=== PATIENT | male | born 1975 | race Caucasian/White ===

== ENCOUNTER 2016-12-10 02:00 | Emergency (ER) | payer OTHER ==
[2016-12-10] MEDS ORDERED: RX INFO: IV CONTRAST WAS GIVEN 1 EACH MISC MISCELLANE PRN (02:05)
[2016-12-10] MEDS ORDERED: HYDROmorphone 1 MG/ML 1 ML SYRINGE IVP STA ×2 (02:05→02:18)
[2016-12-10] MEDS ORDERED: SODIUM CHLORIDE 0.9% 1,000 ML IV STA (02:05)
[2016-12-10 02:06] VITALS: BP 139/100; PULSE 66; TEMP 97.9
[2016-12-10 02:24] VITALS: RESP 22
[2016-12-10 02:24] LABS: CH 33.5; CHCM 34.2; HCT 43.6 % (39.0-53.0); HDW 2.46; HGB 14.6 gm/dL (13.0-17.5); MCH 32.8 pg (25.0-35.0); MCHC 33.4 g/dL (31.0-37.0); MCV 98.3 fL (80.0-100.0); Mean Platelet Volume 8.2; RBC 4.44 m/uL (4.30-5.90); RDW 12.9 % (11.5-15.5); WBC 13.7 k/uL (3.8-10.6); WBC (Perox) 14.11
[2016-12-10 02:27] LABS: ALT 37 U/L (21-72); AST 40 U/L (17-59); Alkaline Phosphatase 61 U/L (38-126); Amylase 51 U/L (30-110); Anion Gap 16 mmol/L; Blood Urea Nitrogen 10 mg/dL (9-20); Calcium 9.5 mg/dL (8.4-10.2); Carbon Dioxide 23 mmol/L (22-30); Chloride 105 mmol/L (98-107); Glucose 120 mg/dL (74-99); Non-African American GFR(MDRD) >60 (>60 ml/min/1.73 sqM); Potassium 3.1 mmol/L (3.5-5.1); Sodium 144 mmol/L (137-145); Total Bilirubin 0.5 mg/dL (0.2-1.3)
[2016-12-10 02:28] LABS: INR 1.2 (<1.2); Partial Thromboplastin Time 25.8 sec (22.0-30.0); Prothrombin Time 11.6 sec (9.0-12.0)
[2016-12-10 02:29] LABS: Alcohol 114 mg/dL
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
[2016-12-10 02:33] LABS: Glucose,Whole Blood 142 mg/dL (75-99)
[2016-12-10] MEDS ORDERED: ceFAZolin 2 GM in SODIUM CHLORIDE 0.9% 100 ML IVPB STA (02:34)
[2016-12-10 02:37] LABS: Creatine Kinase 383 U/L (55-170)
[2016-12-10 02:45] LABS: Add Differential Manual Differential
[2016-12-10 02:47] LABS: Manual Review Performed; Nucleated Red Blood Cells 0 /100 WBC (0-0); Total Cells Counted 100
[2016-12-10 02:50] LABS: Troponin I <0.012 ng/mL (0.000-0.034)
[2016-12-10 02:51] LABS: Creatine Kinase MB 3.9 ng/mL (0.0-2.4)
--- NOTE | 2016-12-10 03:15 | CT ---
CT HEAD WITHOUT CONTRAST INDICATION: Trauma TECHNIQUE: CT acquisition is performed through the brain. Sagittal and coronal reformatted images are provided. No IV contrast is administered. DOSE INFORMATION: CTDIvol 57.40 mGy; DLP 1064.30 mGy-cm. One or more of the following dose reduction techniques were used: automated exposure control, adjustment of the mA and/or kV according to patient size, use of iterative reconstruction technique. COMPARISON: None. FINDINGS: There is a small anterior right frontal scalp hematoma. There is no evidence of skull fracture. There is moderate paranasal sinus mucosal thickening, greatest in the frontal sinus and ethmoid air cells. The mastoid air cells are clear. There is no evidence of acute intracranial hemorrhage or abnormal extra- axial fluid collection. There is no mass effect or midline shift. Sulci, ventricles, and basal cisterns are normal in size and configuration. The hong-white differentiation is preserved. IMPRESSION: 1. No CT evidence of acute intracranial process. 2. Small anterior right frontal scalp hematoma. No skull fracture. 3. Moderate paranasal sinus disease, greatest in the frontal sinus and ethmoid air cells. CT C SPINE WITHOUT CONTRAST INDICATION: Trauma TECHNIQUE: CT acquisition is performed through the cervical spine. Sagittal and coronal reformatted images are provided. No IV contrast is administered. DOSE INFORMATION: CTDIvol 15.00 mGy; DLP 359.10mGy-cm. One or more of the following dose reduction techniques were used: automated exposure control, adjustment of the mA and/or kV according to patient size, use of iterative reconstruction technique. COMPARISON: None. FINDINGS: There is straightening of the cervical spine. Vertebral body height and alignment are maintained. Craniocervical and atlantoaxial relationships are normal. There is an acute traumatic nondisplaced fracture through the right lateral mass of C6 extending into the right C5-C6 facet joint (series 14, image 28; series 8, image 65). No other fractures are visualized. Disc spaces are preserved. Spinal canal is adequately patent. There is no prevertebral soft tissue swelling. IMPRESSION: 1. Acute nondisplaced fracture through the right lateral mass of C6 extending to the right C5-C6 facet
--- NOTE | 2016-12-10 03:23 | CT ---
CT CHEST WITH CONTRAST CT ABDOMEN + PELVIS WITH CONTRAST INDICATION: Trauma TECHNIQUE: CT acquisition is performed through the chest, abdomen, and pelvis following the administration of IV contrast. Sagittal and coronal reformatted images are provided. DOSE INFORMATION: CTDIvol 6.90 mGy; DLP 501.20 mGy-cm. One or more of the following dose reduction techniques were used: automated exposure control, adjustment of the mA and/or kV according to patient size, use of iterative reconstruction technique. COMPARISON: None. FINDINGS: Chest: There is no evidence of traumatic aortic injury. Thoracic aorta and main pulmonary artery are normal in course and caliber. The heart is normal in size and there is no pericardial effusion. There is no adenopathy. There is upper lobe predominant paraseptal and centrilobular emphysema, moderate in degree. There is no airspace consolidation, pleural effusion, or pneumothorax. There are no acute osseous findings. Abdomen + Pelvis: The liver, gallbladder, spleen, pancreas, adrenal glands, and kidneys are unremarkable. Aorta and IVC are normal. There is no evidence of solid organ or vascular injury. Small and large bowel are unremarkable. Urinary bladder and prostate are normal. There is no ascites or pneumoperitoneum. There is no adenopathy. There are no acute osseous findings. IMPRESSION: 1. No evidence of acute traumatic injury in the chest, abdomen, or pelvis. 2. Moderate emphysema.
--- NOTE | 2016-12-10 03:34 | XR ---
INDICATION: Trauma. COMPARISON: None. FINDINGS: Single AP view of the pelvis is provided. There is no evidence of acute fracture or malalignment. Sacroiliac joints, hip joints, and pubic symphysis are congruent. IMPRESSION: No fracture or subluxation.
--- NOTE | 2016-12-10 03:34 | XR ---
LEFT FOREARM, 2 VIEWS INDICATION: Trauma COMPARISON: None. FINDINGS: AP and lateral views of the left radius and ulna are obtained. Acute traumatic displaced open proximal diaphyseal fractures of the radius and ulna with angulation deformity and rotational malalignment. The proximal fracture fragments protrude through the dorsal soft tissues. There is extensive soft tissue injury with swelling, subcutaneous emphysema, and large open dorsal soft tissue defect. Alignment at the elbow and wrist joints appears anatomic. IMPRESSION: Open fractures of the proximal radial and ulnar shafts with significant displacement and extensive soft tissue injury.
--- NOTE | 2016-12-10 03:36 | XR ---
INDICATION: Trauma COMPARISON: None. FINDINGS: Single frontal view of the chest is provided. There is no airspace consolidation, pleural effusion, or pneumothorax. There is upper lobe predominant emphysema. Heart size and pulmonary vascularity are normal. Regional skeleton is intact. IMPRESSION: No acute cardiopulmonary disease.
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
== END 2016-12-10 03:30 | disposition other institution (70) ==
LOC: EC 02:00
DX: S12.500A Unspecified displaced fracture of sixth cervical vertebra, initial encounter for closed fracture (principal); S52.302B Unspecified fracture of shaft of left radius, initial encounter for open fracture type I or II; S52.202B Unspecified fracture of shaft of left ulna, initial encounter for open fracture type I or II; S00.03XA Contusion of scalp, initial encounter; F17.200 Nicotine dependence, unspecified, uncomplicated; V86.35XA Unspecified occupant of 3- or 4- wheeled all-terrain vehicle (ATV) injured in traffic accident, initial encounter
CPT/HCPCS: 99291 ×2; 25565 ×2; 99156 ×2; 99157 ×2; 86900; 86901; 80053; 93005; 36415; 82150; 82550; 82553; 83605; 83690; 84484; 85025; 85610; 85730; 86850; 80320; 71010; 72170; 73090; 72125; 70450; 71260; 74177; Q9967

== ENCOUNTER 2018-09-25 18:50 | Emergency (ER) | payer OTHER ==
[2018-09-25] MEDS ORDERED: LIDOCAINE 1% INJ 10MG/ML (20 ML MDV) SQ ONE (19:11)
--- NOTE | 2018-09-25 19:33 | XR ---
EXAMINATION TYPE: XR finger RT DATE OF EXAM: 09/25/2018 COMPARISON: NONE HISTORY: Laceration TECHNIQUE: 3 views FINDINGS: I see no fracture nor dislocation. There is a 3 mm calcification at the MP joint that could relate to an old injury. There is mild soft tissue swelling. I see no definite radiopaque foreign zana dy. There is laceration type soft tissue deformity at the head of the proximal phalanx. IMPRESSION: Laceration deformity. No acute fracture seen. No definite foreign body.
[2018-09-25] MEDS ORDERED: ceFAZolin 1,000 MG VIAL (IM USE) IM STA (20:24)
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
[2018-09-25 20:47] VITALS: BP 115/70; PULSE 74; RESP 18; TEMP 98.2
== END 2018-09-25 20:46 | disposition home or self-care (01) ==
LOC: EC 18:50
DX: S61.212A Laceration without foreign body of right middle finger without damage to nail, initial encounter (principal); F17.200 Nicotine dependence, unspecified, uncomplicated; W26.9XXA Contact with unspecified sharp object(s), initial encounter; Y92.812 Truck as the place of occurrence of the external cause
CPT/HCPCS: 73140; 99283; 12002; 96372; J0690; J2001

== ENCOUNTER 2018-12-29 21:34 | Emergency (ER) | payer OTHER ==
[2018-12-29 21:38] VITALS: BP 121/80; PULSE 68; RESP 16; TEMP 98
--- NOTE | 2018-12-29 22:10 | XR ---
EXAMINATION TYPE: XR knee complete LT DATE OF EXAM: 12/29/2018 COMPARISON: NONE HISTORY: Knee pain TECHNIQUE: 3 views FINDINGS: I see no fracture nor dislocation. Joint spaces are normal. There is no definite joint effu jacoby. IMPRESSION: Normal left knee.
--- NOTE | 2018-12-29 22:27 | ED ---
General Adult HPI - General Chief complaint: Extremity Injury, Lower Stated complaint: Knee injury Time Seen by Provider: 12/29/18 21:40 Source: patient Mode of arrival: ambulatory Limitations: no limitations - History of Present Illness Initial comments: Patient is a 43-year-old male presenting to emergency Department with a chief complaint of left knee pain. Patient reports that he stepped off a curb without noticing and received a valgus force on the left knee. The incident occurred 2 days ago. Patient reports his knee is giving out whenever he attempts to walk. Patient also reports tenderness along the medial aspect of the left knee. Patient also reports tenderness in the region as well. Patient reports limited range of motion with full extension and flexion. Patient reports taking [id number] analgesics with minimal improvement. - Related Data Previous Rx's Medication Instructions Recorded Cephalexin [Keflex Susp] 500 mg PO Q8H 7 Days ml 09/25/18 Allergies Allergy/AdvReac Type Severity Reaction Status Date / Time No Known Allergies Allergy Verified 12/29/18 21:38 Review of Systems ROS Statement: Those systems with pertinent positive or pertinent negative responses have been documented in the HPI. ROS Other: All systems not noted in ROS Statement are negative. Past Medical History Past Medical History: No Reported History History of Any Multi-Drug Resistant Organisms: None Reported Past Surgical History: No Surgical Hx Reported Past Psychological History: No Psychological Hx Reported Smoking Status: Current every day smoker Past Alcohol Use History: Occasional Past Drug Use History: Marijuana General Exam Limitations: no limitations General appearance: alert, in no apparent distress Head exam: Present: atraumatic, normocephalic, normal inspection Eye exam: Present: normal appearance Pupils: Present: normal accommodation ENT exam: Present: normal exam, mucous membranes moist, normal external ear exam Neck exam: Present: normal inspection, full ROM Respiratory exam: Present: normal lung sounds bilaterally Cardiovascular Exam: Present: regular rate, normal rhythm, normal heart sounds Extremities exam: Present: tenderness (Tenderness along the medial aspect of the left knee. Positive Manuel.), normal capillary refill, joint swelling, other (+2 dorsalis pedis and posterior tibialis bilaterally). Absent: normal inspection (Mild erythema and swelling on the medial aspect of the left knee), full ROM (Limited range of motion with full extension and flexion), calf tenderness (Negative Homans bilaterally) Back exam: Present: normal inspection, full ROM. Absent: CVA tenderness (R), CVA tenderness (L) Neurological exam: Present: alert, oriented X3 Psychiatric exam: Present: normal affect, normal mood Skin exam: Present: warm, intact, normal color Course Vital Signs 12/29/18 21:35 Temperature 98 F Pulse Rate 68 Respiratory 16 Rate Blood Pressure 121/80 O2 Sat by Pulse 100 Oximetry Procedures - Orthopedic Splinting/Casting Injury #1 Side: left Lower Extremity Injury Location: knee Lower Extremity Immobilizer: Ru wrap Medical Decision Making - Medical Decision Making Patient is a 43-year-old male presenting to emergency Department with a chief complaint of left knee pain. Considering the patient received a valgus force to the left knee and he continues to have a popping sensation and the knee giving out. Patient did have positive Manuel. I do suspect the patient has a medial meniscus injury. X-ray is unremarkable. Ru wrap applied. Patient advised to follow-up with orthopedics. Strict return parameters were thoroughly discussed with patient was understanding and agreeable. Patient advised to alternate between Tylenol and ibuprofen for pain control. Case discussed physician. Disposition Clinical Impression: Left knee pain Disposition: HOME SELF-CARE Condition: Stable Instructions (If sedation given, give patient instructions): Knee Pain (ED) Additional Instructions: Please follow with orthopedics. Alternate between Tylenol and ibuprofen for pain control. Please return to emergency department if symptoms worsen. Is patient prescribed a controlled substance at d/c from ED?: No Referrals: Roberto Eddy MD [Primary Care Provider] - 1-2 days Rex Abarca PAC [PHYSICIAN [employer]] - 1-2 days Time of Disposition: 22:32
== END 2018-12-29 22:51 | disposition home or self-care (01) ==
LOC: EC 21:34
DX: M25.562 Pain in left knee (principal); F17.200 Nicotine dependence, unspecified, uncomplicated
CPT/HCPCS: 99283

== ENCOUNTER → 2019-01-17 | Outpatient (CLI) | payer OTHER ==
--- NOTE | 2019-01-18 10:08 | MR ---
EXAMINATION TYPE: MR knee LT wo con DATE OF EXAM: 01/17/2019 COMPARISON: None HISTORY: Pain in left knee TECHNIQUE: Multiplanar, multisequence imaging of the left knee is performed without IV contrast. FINDINGS: MEDIAL MENISCUS: Anterior and posterior horns are intact without tear. LATERAL MENISCUS: Anterior and posterior horns are intact without tear. CRUCIATE LIGAMENTS: Increased signal at the insertion of the ACL is felt to reflect ACL strain withou t tear. PCL is intact. COLLATERAL LIGAMENTS: The medial collateral ligament and lateral collateral ligament complex are inta ct and unremarkable. EXTENSOR MECHANISM: Visualized quadriceps and patellar tendons are intact. EFFUSION: No significant suprapatellar joint effusion. POPLITEAL CYST: No popliteal/argueta cyst. TRICOMPARTMENT SPACES: Intact CARTILAGE: Intact BONE MARROW SIGNAL: No focal abnormal marrow signal is appreciated. OTHER: No additional significant abnormality is appreciated. IMPRESSION: Increased signal at the insertion of the ACL is felt to reflect ACL strain without tear.
== END ==
LOC: RADMRIMAIN 18:13
PROVIDERS: ATTEND Orthopaedic Surgery
DX: S83.512A Sprain of anterior cruciate ligament of left knee, initial encounter (principal)

== ENCOUNTER 2019-01-31 01:15 | Emergency (ER) | payer OTHER ==
--- NOTE | 2019-01-31 01:53 | XR ---
EXAMINATION TYPE: XR forearm LT DATE OF EXAM: 01/31/2019 COMPARISON: 12/10/2016 HISTORY: Forearm infection TECHNIQUE: 3 views FINDINGS: There is a plate with screws fixing old fracture of the proximal ulna. There is an old frac ture mid shaft of the radius with bridging callus. There is apparent bone graft. There is muscle atro phy of the forearm. Elbow joint is intact. Wrist joint is intact. IMPRESSION: Old fractures. No acute fracture seen. There is some sclerosis involving the shaft of the radius at the fracture site in the possibility of chronic osteomyelitis cannot be entirely excluded. I see no sign of osteomyelitis of the ulna.
[2019-01-31 02:01] LABS: Basophils # (A) 0.1 k/uL (0-0.2); Basophils % (A) 1 %; Eosinophils # (A) 0.2 k/uL (0-0.7); Eosinophils % (A) 2 %; HCT 39.7 % (39.0-53.0); HGB 13.8 gm/dL (13.0-17.5); Lymphocytes # (A) 1.7 k/uL (1.0-4.8); Lymphocytes % (A) 15 %; MCHC 34.8 g/dL (31.0-37.0); MCV 94.8 fL (80.0-100.0); Mean Platelet Volume 9.2; Monocytes # (A) 0.9 k/uL (0-1.0); Monocytes % (A) 7 %; Neutrophils # (A) 8.6 k/uL (1.3-7.7); Neutrophils % (A) 74 %; Platelet Count 203 k/uL (150-450); RBC 4.19 m/uL (4.30-5.90); RDW 12.8 % (11.5-15.5); WBC 11.6 k/uL (3.8-10.6)
[2019-01-31 02:08] LABS: Potassium 3.8 mmol/L (3.5-5.1); Sodium 139 mmol/L (137-145)
[2019-01-31 02:10] LABS: ALT 24 U/L (21-72); AST 31 U/L (17-59); African American GFR (CKD) >90 (>60 ml/min/1.73 sqM); Albumin 3.9 g/dL (3.5-5.0); Alkaline Phosphatase 56 U/L (38-126); Anion Gap 7 mmol/L; Blood Urea Nitrogen 17 mg/dL (9-20); Calcium 9.1 mg/dL (8.4-10.2); Carbon Dioxide 26 mmol/L (22-30); Chloride 106 mmol/L (98-107); Glucose 125 mg/dL (74-99); Non-African American GFR(CKD) >90 (>60 ml/min/1.73 sqM); Total Bilirubin 0.7 mg/dL (0.2-1.3); Total Protein 6.8 g/dL (6.3-8.2)
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
[2019-01-31] MEDS ORDERED: CEPHALEXIN 500 MG CAP PO STA (02:21)
[2019-01-31 02:34] VITALS: BP 95/74; PULSE 87; RESP 16; TEMP 97.9
== END 2019-01-31 02:34 | disposition home or self-care (01) ==
LOC: EC 01:15
DX: L03.114 Cellulitis of left upper limb (principal); D72.829 Elevated white blood cell count, unspecified; F17.200 Nicotine dependence, unspecified, uncomplicated; Z87.828 Personal history of other (healed) physical injury and trauma; Z98.890 Other specified postprocedural states
CPT/HCPCS: 36415; 80053; 83605; 85025; 87040; 99283

== ENCOUNTER 2020-01-06 21:03 | Emergency (ER) | payer OTHER ==
[2020-01-06 21:09] VITALS: RESP 18; TEMP 97.9
--- NOTE | 2020-01-06 22:07 | XR ---
EXAMINATION TYPE: XR forearm LT DATE OF EXAM: 01/06/2020 COMPARISON: 01/31/2019 HISTORY: Pain. Redness. TECHNIQUE: 2 views FINDINGS: There is plate with screws fixing proximal shaft of the ulna. There is deformity midshaft o f the radius with possible bone graft material. This appears unchanged compared to old exam. I see no focal bone destruction. IMPRESSION: Radius and ulna appear unchanged compared to old exam. No soft tissue mass seen. No defin ite evidence for osteomyelitis.
[2020-01-06 22:30] LABS: Basophils # (A) 0.1 k/uL (0-0.2); Basophils % (A) 1 %; Eosinophils # (A) 0.3 k/uL (0-0.7); Eosinophils % (A) 5 %; HCT 39.2 % (39.0-53.0); HGB 13.5 gm/dL (13.0-17.5); Lymphocytes # (A) 2.3 k/uL (1.0-4.8); Lymphocytes % (A) 33 %; MCH 32.5 pg (25.0-35.0); MCHC 34.4 g/dL (31.0-37.0); MCV 94.6 fL (80.0-100.0); Mean Platelet Volume 8.1; Monocytes # (A) 0.5 k/uL (0-1.0); Monocytes % (A) 7 %; Neutrophils # (A) 3.6 k/uL (1.3-7.7); Neutrophils % (A) 53 %; Platelet Count 174 k/uL (150-450); RBC 4.15 m/uL (4.30-5.90); RDW 12.7 % (11.5-15.5); WBC 6.9 k/uL (3.8-10.6)
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
[2020-01-06 22:39] LABS: Partial Thromboplastin Time 30.4 sec (22.0-30.0); Prothrombin Time 10.6 sec (9.0-12.0)
[2020-01-06 22:42] LABS: ALT 15 U/L (4-49); AST 29 U/L (17-59); African American GFR (CKD) >90 (>60 ml/min/1.73 sqM); Albumin 3.6 g/dL (3.5-5.0); Alkaline Phosphatase 51 U/L (38-126); Anion Gap 4 mmol/L; Blood Urea Nitrogen 18 mg/dL (9-20); Calcium 9.1 mg/dL (8.4-10.2); Carbon Dioxide 27 mmol/L (22-30); Chloride 106 mmol/L (98-107); Glucose 80 mg/dL (74-99); Non-African American GFR(CKD) >90 (>60 ml/min/1.73 sqM); Potassium 4.4 mmol/L (3.5-5.1); Sodium 137 mmol/L (137-145); Total Bilirubin 0.4 mg/dL (0.2-1.3); Total Protein 6.4 g/dL (6.3-8.2)
[2020-01-06] MEDS ORDERED: cefTRIAXone IN SWFI 1,000 MG/10 ML SYRINGE IVP STA (22:43)
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
[2020-01-06 23:01] VITALS: BP 113/73; PULSE 66
== END 2020-01-06 23:08 | disposition home or self-care (01) ==
LOC: EC 21:03
DX: L03.114 Cellulitis of left upper limb (principal)
CPT/HCPCS: 36415; 80053; 85025; 85610; 85730; 73090; 93971; 99284; 96374; J0696

== ENCOUNTER 2020-08-22 13:30 | Emergency (ER) | payer OTHER ==
[2020-08-22 13:43] VITALS: BP 110/66; PULSE 72; RESP 18; TEMP 97.8
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
== END 2020-08-22 14:20 | disposition home or self-care (01) ==
LOC: EC 13:30
DX: L98.8 Other specified disorders of the skin and subcutaneous tissue (principal); F12.90 Cannabis use, unspecified, uncomplicated; Z87.891 Personal history of nicotine dependence
CPT/HCPCS: 99282

== ENCOUNTER 2020-09-24 17:13 | Emergency (ER) | payer OTHER ==
[2020-09-24 17:26] VITALS: BP 107/66; PULSE 64; RESP 18
[2020-09-24 17:33] VITALS: TEMP 98.1
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
== END 2020-09-24 18:15 | disposition home or self-care (01) ==
LOC: EC 17:13
DX: L98.9 Disorder of the skin and subcutaneous tissue, unspecified (principal); F12.90 Cannabis use, unspecified, uncomplicated; Z87.891 Personal history of nicotine dependence
CPT/HCPCS: 99283

== ENCOUNTER 2020-12-06 20:24 | Emergency (ER) | payer OTHER ==
[2020-12-06 21:15] VITALS: BP 122/70; PULSE 93; RESP 16; TEMP 99.1
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
--- NOTE | 2020-12-06 22:43 | US ---
EXAMINATION TYPE: US venous doppler duplex UE RT DATE OF EXAM: 12/06/2020 COMPARISON: NONE CLINICAL HISTORY: Right arm swelling post contrast injection in CT. SIDE PERFORMED: Right Right Arm: negative for DVT. Superficial edema visualized right upper arm. IMPRESSION: No sign of deep vein thrombosis in the right arm.
== END 2020-12-06 23:26 | disposition home or self-care (01) ==
LOC: EC 20:24
DX: R60.0 Localized edema (principal); F12.90 Cannabis use, unspecified, uncomplicated; Z87.891 Personal history of nicotine dependence
CPT/HCPCS: 99283

== ENCOUNTER → 2020-12-06 | Outpatient (CLI) | payer OTHER ==
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
== END | disposition home or self-care (01) ==
LOC: RADCTMAIN 17:45
PROVIDERS: ATTEND Orthopaedic Surgery
DX: R60.0 Localized edema (principal)

== ENCOUNTER 2024-07-27 18:26 | Emergency (ER) | payer OTHER ==
[2024-07-27 18:31] VITALS: RESP 16
--- NOTE | 2024-07-27 19:17 | ED ---
Fall HPI - General Chief Complaint: Fall Stated Complaint: fall-left elbow injury Time Seen by Provider: 07/27/24 19:12 Source: patient, RN notes reviewed Mode of arrival: ambulatory - History of Present Illness Initial Comments: 49-year-old male presenting for left elbow laceration 1 hour ago. States he tripped over a baby gate, falling and striking his elbow on the ground. Denies blood thinners. Denies head injury or loss of consciousness. States he has full range of motion of the elbow. Last tetanus within the last 5 years. No other injuries. - Related Data Previous Rx's Medication Instructions Recorded cephALEXin [Keflex Susp] 500 mg PO Q6HR 7 Days #280 ml 01/06/20 cephALEXin [Keflex] 500 mg PO Q6HR 7 Days #28 cap 01/06/20 Allergies Allergy/AdvReac Type Severity Reaction Status Date / Time No Known Allergies Allergy Verified 07/27/24 18:31 Review of Systems ROS Statement: Those systems with pertinent positive or pertinent negative responses have been documented in the HPI. ROS Other: All systems not noted in ROS Statement are negative. Past Medical History Past Medical History: No Reported History Additional Past Medical History / Comment(s): cellulitis to LFA History of Any Multi-Drug Resistant Organisms: None Reported Past Surgical History: No Surgical Hx Reported Additional Past Surgical History / Comment(s): Plates to left forearm Past Psychological History: No Psychological Hx Reported Smoking Status: Former smoker Past Alcohol Use History: Occasional Past Drug Use History: Marijuana General Exam Limitations: no limitations General appearance: alert, in no apparent distress Head exam: Present: atraumatic, normocephalic, normal inspection Eye exam: Present: normal appearance, PERRL, EOMI. Absent: scleral icterus, conjunctival injection, periorbital swelling Left Upper Arm exam: Present: normal inspection, full ROM. Absent: tenderness, swelling Elbow exam: Present: full ROM, laceration, erythema. Absent: normal inspection (There is a 6 cm laceration over dorsal aspect of left elbow, no active bleeding, no tendon involvement.), tenderness, swelling Forearm Wrist exam: Present: normal inspection, full ROM. Absent: tenderness, swelling Hand Wrist exam: Present: normal inspection, full ROM. Absent: tenderness, swelling Vascular: Present: normal capillary refill, radial pulse. Absent: vascular compromise Neurological exam: Present: alert, oriented X3 Psychiatric exam: Present: normal affect, normal mood Skin exam: Present: warm, dry, intact, normal color. Absent: rash Course Vital Signs 07/27/24 07/27/24 18:29 20:34 Temperature 97.9 F 98.5 F Pulse Rate 79 62 Respiratory 16 16 Rate Blood Pressure 118/75 125/74 O2 Sat by Pulse 99 99 Oximetry Procedures - Laceration Laceration #1 Consent Obtained: verbal consent Indication: laceration Site: upper extremity Size (cm): 6 Description: irregular Depth: simple, single layer Anesthetic Used: lidocaine 1% (LET applied), with epi Pre-repair: wound explored, irrigated extensively, deep structures intact Type of Sutures: nylon Size of Sutures: 4-0 Number of Sutures: 5 Technique: simple, interrupted Patient Tolerated Procedure: well, no complications Additional Comments: Neurovascularly intact status post procedure Medical Decision Making - Medical Decision Making Was pt. sent in by a medical professional or institution (, PA, GEOCHEMICAL MANAGER, urgent care, hospital, or residential...) When possible be specific @ -No Did you speak to anyone other than the patient for history (EMS, parent, family, police, friend...)? What history was obtained from this source @ -No Did you review nursing and triage notes (agree or disagree)? Why? @ -I reviewed and agree with nursing and triage notes Were old charts reviewed (outside hosp., previous admission, EMS record, old EKG, old radiological studies, urgent care reports/EKG's, residential records)? Report findings @ -No old charts were reviewed Differential Diagnosis (chest pain, altered mental status, abdominal pain women, abdominal pain men, vaginal bleeding, weakness, fever, dyspnea, syncope, headache, dizziness, GI bleed, back pain, seizure, CVA, palpatations, mental he alth, musculoskeletal)? @ -Differential Musculoskeletal Muscular strain, contusion, ligament sprain, fracture, arthritis, septic arthritis, bursitis, cellulitis, muscle spasm, nerve compression, DVT, arterial occlusion, herpes zoster, electrolyte abnormality, tumor.... This is not meant to be in all inclusive list EKG interpreted by me (3pts min.). @ -None X-rays interpreted by me (1pt min.). @ -None done CT interpreted by me (1pt min.). @ -None done U/S interpreted by me (1pt. min.). @ -None done What testing was considered but not performed or refused? (CT, X-rays, U/S, labs)? Why? @ -Patient declined elbow x-ray, there is low suspicion for fracture at this time What meds were considered but not given or refused? Why? @ -None Did you discuss the management of the patient with other professionals (professionals i.e. Dr., PA, GEOCHEMICAL MANAGER, lab, RT, psych nurse, social organization professor, development vice president, teacher, chief scientific officer, caser shoe parts)? Give summary @ -No Was smoking cessation discussed for >3mins.? @ -No Was critical care preformed (if so, how long)? @ -No Were there social determinants of health that impacted care today? How? (Homelessness, low income, unemployed, alcoholism, drug addiction, transporta tion, low edu. Level, literacy, decrease access to med. care, snf, rehab)? @ -No Was there de-escalation of care discussed even if they declined (Discuss DNR or withdrawal of care, Hospice)? DNR status @ -No What co-morbidities impacted this encounter? (DM, HTN, Smoking, COPD, CAD, Cancer, CVA, ARF, Chemo, Hep., AIDS, mental health diagnosis, sleep apnea, morbid obesity)? @ -None Was patient admitted / discharged? Hospital course, mention meds given and route, prescriptions, significant lab abnormalities, going to OR and other pertinent info. @ -Discharge. 49-year-old male presenting for left elbow laceration 1 hour ago. Patient is up-to-date on tetanus. Full range of motion of elbow. No blood thinners. There is a 6 cm laceration over dorsal aspect of left elbow with no active bleeding. LET was applied for anesthesia and 5 sutures were placed with no complications. Instructed to follow-up in 7 days for suture removal. Appropriate return precautions and wound care discussed. Case was discussed with my ED attending Dr. Terrell. Undiagnosed new problem with uncertain prognosis? @ -No Drug Therapy requiring intensive monitoring for toxicity (Heparin, Nitro, Insulin, Cardizem)? @ -No Were any procedures done? @ -Yes, sutures were performed to close laceration of elbow Diagnosis/symptom? @ -Left elbow laceration Acute, or Chronic, or Acute on Chronic? @ -Acute Uncomplicated (without systemic symptoms) or Complicated (systemic symptoms)? @ -Uncomplicated Side effects of treatment? @ -No Exacerbation, Progression, or Severe Exacerbation? @ -No Poses a threat to life or bodily function? How? (Chest pain, USA, DC, pneumonia, PE, COPD, DKA, ARF, appy, cholecystitis, CVA, Diverticulitis, Homicidal, Suicidal, threat to staff... and all critical care pts) @ -No Disposition Clinical Impression: Laceration of left elbow Disposition: HOME SELF-CARE Condition: Stable Instructions (If sedation given, give patient instructions): Laceration (ED) Additional Instructions: Keep wound dry for the first 24 hours. Then you may gently wash wound with an antibacterial soap and water. Try to limit bending elbow until your suture removal in 7 days. Please return to the Emergency Department if symptoms worsen or any other concerns. Is patient prescribed a controlled substance at d/c from ED?: No Referrals: None,Stated [Primary Care Provider] - 1-2 days Time of Disposition: 20:28
[2024-07-27] MEDS: LIDOCAINE/EPINEPHR/TETRACAINE 5 ML BOTTLE TOPICAL ONE (19:34)
[2024-07-27 20:36] VITALS: BP 125/74; PULSE 62; TEMP 98.5
== END 2024-07-27 20:34 | disposition home or self-care (01) ==
LOC: EC 18:26
DX: S51.012A Laceration without foreign body of left elbow, initial encounter (principal); Z87.891 Personal history of nicotine dependence; W01.0XXA Fall on same level from slipping, tripping and stumbling without subsequent striking against object, initial encounter
CPT/HCPCS: 12002; 99283